=== PATIENT | female | born 2000 | race Caucasian/White ===

== ENCOUNTER 2022-05-19 09:01 | Emergency (ER) | payer OTHER, BC ==
[~2022-05-19] VITALS: Ht 172.7 cm; Wt 90.7 kg
--- NOTE | 2022-05-19 09:01 | NUR ---
Katerin salinas in [facility] - 05/19/22 at 0902 by PHSEP PT BIBA TO BED 5
[2022-05-19 09:04] VITALS: BP 138/90
--- NOTE | 2022-05-19 09:10 | NUR ---
[address] BRYAN SMITH
[2022-05-19] MEDS ORDERED: KETOROLAC 15 MG/ML VIAL IVP ONE (09:55)
[2022-05-19 10:17] LABS: BASOPHILS % (AUTO) 0.3 % (0.0-2.0); EOSINOPHILS # (AUTO) 0.1 K/uL (0-0.4); EOSINOPHILS % (AUTO) 0.7 % (0.0-4.0); HEMATOCRIT 40.1 % (36-48); HEMOGLOBIN 13.6 g/dL (12.0-16.0); LYMPHOCYTES # (AUTO) 1.9 K/uL (2.5-16.5); LYMPHOCYTES % (AUTO) 14.4 % (20.5-51.1); MEAN CORPUSCULAR HEMOGLOBIN 29 pg (27-31); MEAN CORPUSCULAR HGB CONC 34 g/dL (33-37); MEAN CORPUSCULAR VOLUME 84.4 fL (80-94); MONOCYTES # (AUTO) 0.6 K/uL (0.8-1.0); MONOCYTES % (AUTO) 4.6 % (1.7-9.3); NEUTROPHILS # (AUTO) 10.5 K/uL (1.8-7.7); PLATELET COUNT (AUTO) 479 K/uL (140-450); RED BLOOD CELL COUNT(AUTO) 4.75 MIL/uL (4.20-5.40); RED CELL DISTRIBUTION WIDTH 12.6 % (11.6-13.7); WHITE BLOOD COUNT (AUTO) 13.2 K/uL (4.8-10.8)
[2022-05-19 10:38] LABS: ALBUMIN 3.7 g/dL (3.4-5.0); CARBON DIOXIDE 26.8 mmol/L (21-32); CREATININE 0.9 mg/dL (0.6-1.3); POTASSIUM 3.8 mmol/L (3.5-5.1); TOTAL BILIRUBIN 0.3 mg/dL (0.0-1.0)
[2022-05-19] MEDS ORDERED: KETOROLAC 15 MG/ML VIAL ONE (11:02)
[2022-05-19] MEDS ORDERED: MORPHINE SULFATE 4 MG/ML SYR ONE (11:03)
[2022-05-19] MEDS ORDERED: ONDANSETRON 4 MG/2 ML VIAL ONE (11:03)
[2022-05-19] MEDS ORDERED: MORPHINE SULFATE 4 MG/ML SYR IVP ONE (11:05)
[2022-05-19] MEDS ORDERED: ONDANSETRON 4 MG/2 ML VIAL IVP ONE (11:05)
[2022-05-19] MEDS ORDERED: IBUP-2213 PO (12:38)
== END 2022-05-19 12:51 | disposition home or self-care (01) ==
LOC: MED 09:01
DX: S80.02XA Contusion of left knee, initial encounter (principal); S30.1XXA Contusion of abdominal wall, initial encounter; V49.88XA Car occupant (driver) (passenger) injured in other specified transport accidents, initial encounter; Y93.89 Activity, other specified; Y92.89 Other specified places as the place of occurrence of the external cause; Y99.8 Other external cause status
CPT/HCPCS: 36415; 72131; 73562; 74177; 80053; 81025; 83690; 85025; 96372; 96374; 96375; 99285; J1885; J2270; J2405; Q0092; Q9967